=== PATIENT | male | born 1940 | race Hispanic/Latino ===

== ENCOUNTER → 2019-10-26 | Outpatient (CLI) | payer OTHER ==
[~2019-10-26] MED LIST: GADODIAMIDE 10 MMOL/20 ML VIAL IV ONE
== END | disposition home or self-care (01) ==
LOC: RAH 08:33
PROVIDERS: ATTEND Internal Medicine Gastroenterology
DX: R16.0 Hepatomegaly, not elsewhere classified (principal); D18.00 Hemangioma unspecified site; R93.3 Abnormal findings on diagnostic imaging of other parts of digestive tract
CPT/HCPCS: 74183; A9579

== ENCOUNTER 2023-09-25 18:09 | Emergency (ER) | payer OTHER ==
[~2023-09-25] VITALS: Ht 170.2 cm; Wt 74.8 kg
[2023-09-25 20:46] LABS: BASOPHILS # (AUTO) 0.05 K/uL (0.00-0.20); BASOPHILS % (AUTO) 0.7 % (0.0-5.0); EOSINOPHILS # (AUTO) 0.41 K/uL (0.00-0.70); EOSINOPHILS % (AUTO) 5.5 % (0.0-8.0); IMMATURE GRANULOCYTE ABSOLUTE 0.06 K/uL (0-1); LYMPHOCYTES # (AUTO) 1.8 K/uL (1.0-4.8); LYMPHOCYTES % (AUTO) 24.4 % (21.0-51.0); MEAN CORPUSCULAR HEMOGLOBIN 30.4 pg (27.0-33.0); MEAN CORPUSCULAR HGB CONC 33.1 g/dL (32.0-36.0); MEAN CORPUSCULAR VOLUME 92.1 fL (79-99); MONOCYTES # (AUTO) 0.6 K/uL (0.1-1.0); MONOCYTES % (AUTO) 7.4 % (3.0-13.0); NEUTROPHILS # (AUTO) 4.6 K/uL (1.8-7.7); NEUTROPHILS % (AUTO) 61.2 % (40.0-77.0); PLATELET COUNT (AUTO) 235 K/uL (130-400); RED BLOOD CELL COUNT(AUTO) 3.91 MIL/uL (4.50-6.20); RED CELL DISTRIBUTION WIDTH 14.6 % (11.0-15.5); WHITE BLOOD COUNT (AUTO) 7.5 K/uL (4.8-10.8)
[2023-09-25 20:57] LABS: CREATININE 1.1 mg/dL (0.5-1.3); POTASSIUM 4.8 mmol/L (3.5-5.1)
[2023-09-25 21:01] LABS: ALBUMIN 3.4 g/dL (3.5-5.0); BILIRUBIN,TOTAL 0.5 mg/dL (0.2-1.0); TOTAL PROTEIN, SERUM 6.6 g/dL (6.0-8.3)
[2023-09-25] MEDS: 0.9%NACL 1000ML 1,000 ML IV ONE (21:39)
[2023-09-25 21:40] LABS: APPEARANCE,URINE CLEAR (CLEAR); BILIRUBIN,URINE NEGATIVE (NEGATIVE); COLOR,URINE LIGHT-YELLOW (YELLOW); GLUCOSE, URINE (UA) NEGATIVE (NEGATIVE); KETONES,URINE NEGATIVE (NEGATIVE); LEUKOCYTE ESTERASE ,URINE NEGATIVE Leu/uL (NEGATIVE); NITRATE,URINE NEGATIVE (NEGATIVE); OCCULT BLOOD,URINE NEGATIVE (NEGATIVE); PROTEIN,URINE NEGATIVE (NEGATIVE); UROBILINOGEN,URINE 3 mg/dL (0.2-1.0)
[2023-09-25 21:42] LABS: ADD UA MICROSCOPIC YES
[2023-09-25 21:43] LABS: BACTERIA,URINE RARE /HPF (None Seen); MUCUS,URINE RARE LPF (None Seen)
[2023-09-25 23:03] VITALS: BP 148/74; PULSE 88; RESP 18; O2SAT 98
== END 2023-09-25 23:05 ==
LOC: EDH 18:09
DX: E86.0 Dehydration (principal); D64.9 Anemia, unspecified; E78.00 Pure hypercholesterolemia, unspecified; I10 Essential (primary) hypertension; M19.90 Unspecified osteoarthritis, unspecified site; F03.90 Unspecified dementia, unspecified severity, without behavioral disturbance, psychotic disturbance, mood disturbance, and anxiety; Z20.822 Contact with and (suspected) exposure to COVID-19
CPT/HCPCS: 99285; 96360; 71045; 87426; 84484; 80053; 85025; 87040 ×2; 83605; 81001; 36415; 93005; J7030

== ENCOUNTER 2025-02-16 22:16 | Inpatient (IN) | payer OTHER ==
[~2025-02-16] VITALS: Ht 162.6 cm; Wt 70.9 kg
--- NOTE | 2025-02-16 22:38 | ERN ---
General Chief Complaint: Cough Stated Complaint: COUGH Time Seen by MD: 22:17 History of Present Illness Initial Comments 85-year-old male with a extensive past medical history including severe dementia brought in by EMS from custodial here for evaluation of cough. care home was concerned about patient's overall status and called EMS for evaluation. Upon arrival by EMS patient was noted to be hypotensive thus they started 1 L lactated Ringer's. His blood pressure remains soft. Patient unable to communicate with examiner at baseline Allergies: Coded Allergies: No Known Drug Allergies (Unverified Allergy, Unknown, 09/25/23) Past Medical History Past Medical History: Arthritis, Dementia, High Cholesterol, Hypertension Past Surgical History: Unknown Respiratory: (+) cough Review of Systems: was completed, & the rest were negative. Physical Exam General Appearance: (+) no apparent distress Orientation: (+) alert Head/Face Trauma: No Eye: bilateral eye normal inspection, bilateral eye PERRL, bilateral eye EOMI Ear, Nose, Throat Comment Dry mucous membranes. Oropharynx clear Neck: (+) normal inspection, (+) supple Respiratory: (+) chest non-tender, (+) lungs clear, (+) well ventilated Heart: (+) tachycardia (Grossly us what is up from 76 I will figure out the patient was then tachycardic) Gastrointestinal: (+) soft, (+) non-tender (Scale) Results Laboratory and Microbiology Lab and Micro Result Laboratory Tests Test 02/16/25 22:40 02/16/25 23:08 02/16/25 23:11 02/16/25 23:39 White Blood Count 15.0 K/uL (4.8-10.8) H Red Blood Count 3.86 MIL/uL (4.50-6.20) L Hemoglobin 11.3 g/dL (14.0-18.0) L Hematocrit 34.7 % (42-54) L Mean Corpuscular Volume 89.9 fL (79-99) Mean Corpuscular Hemoglobin 29.3 pg (27.0-33.0) Mean Corpuscular Hemoglobin Concent 32.6 g/dL (32.0-36.0) Red Cell Distribution Width 14.7 % (11.0-15.5) Platelet Count 251 K/uL (130-400) Mean Platelet Volume 10.5 fL (7.5-10.5) Immature Granulocyte % (Auto) 0.7 % (0-1) Neutrophils (%) (Auto) 88.8 % (40.0-77.0) H Lymphocytes (%) (Auto) 5.5 % (21.0-51.0) L Monocytes (%) (Auto) 4.7 % (3.0-13.0) Eosinophils (%) (Auto) 0.1 % (0.0-8.0) Basophils (%) (Auto) 0.2 % (0.0-5.0) Neutrophils # (Auto) 13.3 K/uL (1.8-7.7) H Lymphocytes # (Auto) 0.8 K/uL (1.0-4.8) L Monocytes # (Auto) 0.7 K/uL (0.1-1.0) Eosinophils # (Auto) 0.01 K/uL (0.00-0.70) Basophils # (Auto) 0.03 K/uL (0.00-0.20) Absolute Immature Granulocyte (auto 0.11 K/uL (0-1) Nucleated Red Blood Cells 0.0 % (0.0-0.19) White Cell Morphology Comment CONSISTENT W/DIFF Sodium Level 141 mmol/L (136-145) Potassium Level 4.0 mmol/L (3.5-5.1) Chloride Level 104 mmol/L (101-111) Carbon Dioxide Level 29 mmol/L (21-32) Blood Urea Nitrogen 17 mg/dL (7-18) Creatinine 1.5 mg/dL (0.5-1.3) H Glomerular Filtration Rate Calc 45 mL/min (>90) Random Glucose 125 mg/dL (70-105) H Lactic Acid Level 2.4 mmol/L (0.8-2.5) Total Calcium 8.5 mg/dL (8.5-10.1) Total Bilirubin 0.7 mg/dL (0.2-1.0) Direct Bilirubin 0.2 mg/dL (0.0-0.3) Aspartate Amino Transf (AST/SGOT) 16 U/L (10-37) Alanine Aminotransferase (ALT/SGPT) 11 U/L (12-78) L Alkaline Phosphatase 108 U/L (50-136) Total Protein 6.0 g/dL (6.0-8.3) Albumin 2.6 g/dL (3.5-5.0) L Procalcitonin 0.12 ng/mL (0.05-0.5) Influenza Type A Antigen Negative For Type A Influenza Type B Antigen Negative For Type B SARS-CoV-2 Antigen (Rapid) PRESUMPTIVE NEGATIVE Blood Gas Specimen Type Arterial Arterial Blood pH 7.433 (7.350-7.450) Arterial Blood Partial Pressure CO2 38 mmHg (35-48) Arterial Blood Partial Pressure O2 93.0 mmHg (83.0-108.0) Arterial Blood HCO3 25.0 mmol/L (21.0-28.0) Arterial Blood Oxygen Saturation 96.9 % (94.0-98.0) Arterial Blood Base Excess 0.8 mmol/L (-2.0-3.0) Hemoglobin (Blood Gas) 11.9 g/dL (13.5-17.5) L Sodium (Blood Gas) 140 MMOL/L (136-145) Bedside Potassium (Blood Gas) 4.0 MMOL/L (3.4-4.5) Bedside Chloride (Blood Gas) 106 MMOL/L (98-107) Bedside Glucose (Blood Gas) 118 MG/DL (65-95) H Bedside Ionized Calcium (Blood Gas) 1.17 MMOL/L (1.15-1.33) Bedside Lactic Acid (Blood Gas) 1.78 MMOL/L (0.36-0.75) H Blood Gas Temperature 37.0 CELSIUS (35.5-37.0) Blood Gas Flow-by 2.00 L/min (0.00-15.00) Blood Gas Vent Mode 2 LNC (ROOM AIR) FiO2 28.0 % Blood Gas Specimen Comment RT RAD Urine Color YELLOW (YELLOW) Urine Appearance TURBID (CLEAR) Urine pH 5.5 (5.0-8.0) Urine Specific Holly 1.019 (1.001-1.031) Urine Protein 100 mg/dL (NEGATIVE) H Urine Glucose (UA) 50 mg/dL (NEGATIVE) H Urine Ketones NEGATIVE mg/dL (NEGATIVE) Urine Occult Blood LARGE (NEGATIVE) H Urine Nitrate NEGATIVE (NEGATIVE) Urine Bilirubin NEGATIVE mg/dL (NEGATIVE) Urine Urobilinogen 3 mg/dL (0.2-1.0) H Urine Leukocyte Esterase NEGATIVE [place]/uL Urine RBC TNTC /HPF (0-1) H Urine WBC 11-25 /HPF (0-1) H Urine Bacteria FEW /HPF (None Seen) Urine Hyaline Casts 11-25 /LPF (0-1 /LPF) H Urine Granular Casts (Auto) 6-10 /LPF (None Seen) H Test 02/17/25 00:44 Troponin I High Sensitivity 14 ng/L (4-75) B-Type Natriuretic Peptide 59 pg/mL (0-100) MDM 85-year-old male here for evaluation of cough. Patient was noted to be hy potensive when he presented to the emergency room. He was given 2 L of fluids which he responded to well. [place] [address] white blood cell count, lactic acidosis. However no source of infection has been fully identified. His urine is clean. Chest x-ray shows pulmonary effusions. However based of the symptomatology, I believe his source of infection is either viral and/or from the pneumonia. Thus he was started on ceftriaxone and azithromycin x1. He will be admitted to the hospitalist/benchmark team for further management and evaluation. ED Course Orders Procedure Category Date Status Time Chest 1vw RAD 02/16/25 Resulted 22:17 Influenza Type A & B, LAB 02/16/25 Complete Rapid 22:17 Covid19 (Sars Antigen LAB 02/16/25 Complete Rapid) 22:17 Lactic Acid LAB 02/16/25 Complete 22:21 Blood Cult ONEIL 02/16/25 In Process 22:21 Procalcitonin LAB 02/16/25 Complete 22:21 12 Lead Ekg Tracing- EKG 02/16/25 Logged Technical 22:21 Bedside Troponin-I LAB.ER 02/16/25 In Process (Poc) 22:21 Urinalysis Profile LAB 02/16/25 Complete Catherized 22:21 Cbc With Differential LAB 02/16/25 Complete 22:41 Basic Metabolic Panel LAB 02/16/25 Complete 22:41 Hepatic Function Panel LAB 02/16/25 Complete 22:41 Arterial Blood Gas RT 02/16/25 Transmitted 22:53 Arterial Blood Gas LAB 02/16/25 Complete Arterial + 23:11 Culture Urine ONEIL 02/17/25 In Process 00:23 B-Type Natriuretic LAB 02/17/25 Complete Peptide 00:24 Troponin I High LAB 02/17/25 Complete Sensitivity 00:24 Ceftriaxone 1g Vial PHA 02/17/25 In Process (Rocephine 1g Inj) 01:30 Azithromycin 500mg+Ns PHA 02/17/25 In Process 250ml (Azithromyci 01:30 Ct Chest Pe Protocol CT 02/17/25 Logged Wwo Cont 01:25 Current Medications Medications (Trade) Dose Ordered Sig/Radha Route PRN Reason Start Time Stop Time Status Last Admin Dose Admin Azithromycin 250 ml @ 250 mls/hr ONCE ONCE IVPB 02/17/25 01:30 02/17/25 02:29 Ceftriaxone Sodium (ROCEphine 1G INJ) 1 gm ONCE ONCE IVPB 02/17/25 01:30 02/17/25 01:31 Vital Signs Date Time Temp Pulse Resp B/P (MAP) Pulse Ox O2 Delivery O2 Flow Rate FiO2 02/16/25 23:17 98.8 108 25 115/66 100 Nasal Cannula* 3 32 02/16/25 22:20 98.2 60 20 85/40 87 Room Air 0 DX & DISP Disposition: Inpatient Departure Impression: Primary Impression: Sepsis due to pneumonia Additional Impressions: CKD (chronic kidney disease), Dementia Condition: Stable Referrals: SELF,REFERRAL (PCP) KAREN PETTIT MD Feb 16, 2025 22:38
[2025-02-16 23:08] LABS: IMMATURE GRANULOCYTE ABSOLUTE 0.11 K/uL (0-1); NUCLEATED RED BLOOD CELLS 0.0 % (0.0-0.19); PLATELET COUNT (AUTO) 251 K/uL (130-400); RED BLOOD CELL COUNT(AUTO) 3.86 MIL/uL (4.50-6.20); RED CELL DISTRIBUTION WIDTH 14.7 % (11.0-15.5); WHITE BLOOD COUNT (AUTO) 15.0 K/uL (4.8-10.8)
--- NOTE | 2025-02-16 23:09 | HMCIMG ---
EXAM: CR Chest, 1 view CLINICAL HISTORY: Cough. Shortness of breath. COMPARISON: None provided. FINDINGS: Mildly blunted left CP angle, concerning small pleural effusion or pleural thickening. The remaining lung kwan are clear. No pneumothorax. The cardiomediastinal silhouette is within normal limits. No acute osseous abnormality. IMPRESSION: Mildly blunted left CP angle, concerning small pleural effusion or pleural thickening. /[place]
[2025-02-16 23:15] LABS: ABG BASE EXCESS 0.8 mmol/L (-2.0-3.0); ABG HCO3 25.0 mmol/L (21.0-28.0); ABG OXYGEN SATURATION 96.9 % (94.0-98.0); ABG PCO2 38 mmHg (35-48); ABG PH 7.433 (7.350-7.450); CARBON MONOXIDE 0.3 % (0.5-1.5); DEVICE COMMENT RT RAD; PO2, ARTERIAL BG 93.0 mmHg (83.0-108.0); TEMPERATURE, CELSIUS BG 37.0 CELSIUS (35.5-37.0); VENT MODE, BG 2 LNC (ROOM AIR)
[2025-02-16 23:17] LABS: CREATININE 1.5 mg/dL (0.5-1.3); GLOMERULAR FILTR. RATE CALC 45.0 mL/min (>90); GLUCOSE,RANDOM 125.0 mg/dL (70-105); SODIUM SERUM 141.0 mmol/L (136-145); UREA NITROGEN, BLOOD 17.0 mg/dL (7-18)
[2025-02-16 23:22] LABS: ASPARTATE AMINOTRANSFERASE 16.0 U/L (10-37); TOTAL PROTEIN, SERUM 6.0 g/dL (6.0-8.3)
[2025-02-16 23:36] LABS: COVID19 (SARS ANTIGEN RAPID) PRESUMPTIVE NEGATIVE (NEGATIVE); INFLUENZA TYPE A Negative For Type A (NEGATIVE); INFLUENZA TYPE B Negative For Type B (NEGATIVE)
[2025-02-17] VITALS (13 sets, daily range): BP systolic 97–140; BP diastolic 56–69; PULSE 63–102; RESP 16–20; TEMP 96.2–98.2; O2SAT 98–100
[2025-02-17 00:15] LABS: WBC MORPHOLOGY CONSISTENT W/DIFF
[2025-02-17 00:17] LABS: ADD UA MICROSCOPIC YES; APPEARANCE,URINE TURBID (CLEAR); GLUCOSE, URINE (UA) 50 mg/dL (NEGATIVE); LEUKOCYTE ESTERASE ,URINE NEGATIVE Leu/uL (NEGATIVE); NITRATE,URINE NEGATIVE (NEGATIVE); OCCULT BLOOD,URINE LARGE (NEGATIVE)
[2025-02-17] MEDS: AZITHROMYCIN 500MG+NS 250ML 250 ML IVPB ONE (01:47)
[2025-02-17] MEDS ORDERED: NITROGLYCERIN 0.4 MG SL TAB SL PRN (02:30)
[2025-02-17] MEDS ORDERED: LACTULOSE 20 GM/30 ML UDCUP PO PRN (02:30)
[2025-02-17] MEDS ORDERED: MAG/ALUM/SIMETH 30 ML UDCUP PO PRN (02:30)
[2025-02-17] MEDS: LACTATED RINGERS 1000ML 1,000 ML IV SCH (02:41)
[2025-02-17 02:43] LABS: INR 1.14 (0.85-1.15)
--- NOTE | 2025-02-17 02:46 | NUR ---
SANNA (ASSISTED LIVING AUTOMATIC SPLICING MACHINE OPERATOR) [phone]
--- NOTE | 2025-02-17 03:27 | HMCIMG ---
EXAM: CTA examination of the chest CLINICAL HISTORY: Acute hypoxic respiratory failure. TECHNIQUE: Thin collimated axial CTA images of the chest were obtained, with sagittal and coronal reformatted images also submitted. A CT scan is done according to ALARA (As Low as Reasonably Achievable). CONTRAST USED: Contrast details are not available. COMPARISON: Prior chest radiograph dated February 16, 2025. FINDINGS: Minimal right-sided pleural effusion and mild left posterior pleural thickening with subsegmental atelectasis in the bilateral lower lobes. Tiny 2 mm calcified granuloma in the posterior basal segment of the right lower lobe. Mild centrilobular emphysematous changes in the lung parenchyma. No concerning lung nodules No pericardial effusion. The heart size is within normal limits. Scattered coronary artery calcifications. Atherosclerotic calcification of the thoracic aorta without aneurysmal dilatation. No thoracic aortic aneurysm or dissection. No filling defect or pulmonary thromboembolism. No axillary, supraclavicular, or mediastinal lymphadenopathy. No focal thyroid abnormality. A lobulated 4.8 x 4.2 cm hypodense lesion in segment 3 of the liver. A 2.6 x 2.2 cm cyst in segment 2 of the liver. Post cholecystectomy status. A few left renal cortical cysts are identified, partially visualized largest measuring 4.6 cm. Nonobstructive punctate 2 mm calculus in the right kidney interpolar calyx. Mild hiatus hernia. The remainder of the visualized upper abdomen is unremarkable. No acute or suspicious osseous abnormality. Degenerative changes in the mid and lower thoracic spine. IMPRESSION: Normal contrast opacification of the pulmonary vasculature. No obvious evidence of pulmonary embolism. Normal cardiac size, scattered coronary artery calcifications. Nonaneurysmal atherosclerotic vascular disease of the thoracic aorta. No evidence of dissection of the thoracic aorta. Minimal right-sided pleural effusion and mild left posterior pleural thickening with subsegmental atelectasis in the bilateral lower lobes. Tiny 2 mm calcified granuloma in the posterior basal segment of the right lower lobe. Mild centrilobular emphysematous changes in the lung parenchyma. Mild hiatus hernia. A cyst in segment 2 of the liver, 2.6 x 2.2 cm, and a hypodense 4.8 x 4.2 cm lesion in segment 3 of the liver. Suggest further evaluation with triphasic CT abdomen. Bilateral renal cortical cysts, the largest measuring 4.2 cm in the left kidney's interpolar region. Nonobstructive punctate 2 mm calculus in the right kidney interpolar region. /[place]
--- NOTE | 2025-02-17 06:52 | EKG ---
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
[2025-02-17] MEDS ORDERED: IOHEXOL-350 75 ML VIAL IV ONE (07:15)
[2025-02-17] MEDS: FAMOTIDINE 20MG VIAL IV SCH (11:24)
[2025-02-17] MEDS: Solu-medROL 40MG VIAL IVP SCH (11:24)
[2025-02-17 11:29] LABS: IMMATURE GRANULOCYTE ABSOLUTE 0.06 K/uL (0-1); NUCLEATED RED BLOOD CELLS 0.0 % (0.0-0.19); PLATELET COUNT (AUTO) 231 K/uL (130-400); RED BLOOD CELL COUNT(AUTO) 3.53 MIL/uL (4.50-6.20); RED CELL DISTRIBUTION WIDTH 15.0 % (11.0-15.5); WHITE BLOOD COUNT (AUTO) 13.4 K/uL (4.8-10.8)
--- NOTE | 2025-02-17 12:09 | HP ---
[facility] HISTORY & PHYSICAL Date Patient Seen: Feb 17, 2025 Time of Visit: 12:08 Supervising Physician: DR PIEDAD TAI Primary Care Physician: [ ] Outpatient Specialists: [ ] Inpatient Consults: [ ] PROBLEM LIST: SEPSIS ACUTE COMPLICATED CYSTITIS DALLIN UNKNOWN IF ACUTE ON CHRONIC HISTORY OF DEMENTIA, CAD, HYPERTENSION HPI: PATIENT IS AN 85-YEAR-OLD MALE I AM TOLD THAT HAS EXTENSIVE PAST MEDICAL HISTORY INCLUDES SEVERE DEMENTIA, HYPERTENSION, CAD WHO PRESENTED FROM A [facility] FOR HYPOTENSION. CODE SEPSIS WAS INITIATED, PATIENT RECEIVED FLUIDS AND WAS STARTED ON ANTIBIOTICS. PATIENT WAS FOUND TO HAVE AN ACUTE COMPLICATED CYSTITIS. CONCERN FOR POSSIBLE ASPIRATION PNEUMONIA. PATIENT ADMITTED TO THE FLOOR, ON SUPPLEMENTAL O2, NEBULIZER TREATMENTS AND STEROIDS. WE ARE PENDING ADDITIONAL DETAILS AND REVIEW OF HIS HOME MEDICATIONS AND ADDITIONAL HISTORY. UNKNOWN CODE STATUS PAST MEDICAL HX: DEMENTIA HYPERTENSION CAD PAST SURGICAL HX: noncontributory SOCIAL HISTORY: No tobacco, ETOH, or illicit drug use Coded Allergies: No Known Drug Allergies (Unverified Allergy, Unknown, 09/25/23) REVIEW OF SYSTEMS: 12 point ROS reviewed with patient. Pertinent positives mentioned above. Otherwise negative. PHYSICAL EXAM: GENERAL: alert, weak, awake oriented x 3 HEENT: EOMI, Sclera non icteric, moist mucosa NECK: Supple, no JVD, trachea midline LUNGS: Clear breath sounds bilaterally. No wheezes HEART: Regular rate and rhythm. Normal S1 and S2, without murmurs ABD: Abdomen soft, nontender. Bowel sounds present EXT: No clubbing cyanosis or edema NEURO: Alert and oriented to person, follows commands Vital Signs (last 8hr) Date Time Temp Pulse Resp B/P (MAP) Pulse Ox O2 Delivery O2 Flow Rate FiO2 02/17/25 11:18 91 20 N/Cannula Low lpm 2.0 28 02/17/25 11:18 91 18 02/17/25 07:50 97.3 91 18 111/66 100 Nasal Cannula 2.0 02/17/25 07:02 84 18 02/17/25 07:01 84 20 N/Cannula Low lpm 3.0 32 02/17/25 06:55 98.2 87 18 107/67 97 Nasal Cannula 2.0 02/17/25 05:20 63 18 119/58 100 Nasal Cannula* 3 32 LABS: Hematology Labs: Test 02/17/25 02:21 02/16/25 22:40 Range/Units White Blood Count 13.4 H 4.8-10.8 K/uL Red Blood Count 3.53 L 4.50-6.20 MIL/uL Hemoglobin 10.3 L 14.0-18.0 g/dL Hematocrit 32.9 L 42-54 % Mean Corpuscular Volume 93.2 79-99 fL Mean Corpuscular Hemoglobin 29.2 27.0-33.0 pg Mean Corpuscular Hemoglobin Concent 31.3 L 32.0-36.0 g/dL Red Cell Distribution Width 15.0 11.0-15.5 % Platelet Count 231 130-400 K/uL Mean Platelet Volume 11.1 H 7.5-10.5 fL Immature Granulocyte % (Auto) 0.4 0-1 % Neutrophils (%) (Auto) 85.9 H 40.0-77.0 % Lymphocytes (%) (Auto) 9.0 L 21.0-51.0 % Monocytes (%) (Auto) 4.4 3.0-13.0 % Eosinophils (%) (Auto) 0.2 0.0-8.0 % Basophils (%) (Auto) 0.1 0.0-5.0 % Neutrophils # (Auto) 11.5 H 1.8-7.7 K/uL Lymphocytes # (Auto) 1.2 1.0-4.8 K/uL Monocytes # (Auto) 0.6 0.1-1.0 K/uL Eosinophils # (Auto) 0.03 0.00-0.70 K/uL Basophils # (Auto) 0.02 0.00-0.20 K/uL Absolute Immature Granulocyte (auto 0.06 0-1 K/uL Nucleated Red Blood Cells 0.0 0.0-0.19 % White Cell Morphology Comment CONSISTENT W/DIFF Chemistry Labs: Test 02/17/25 02:22 02/17/25 00:44 02/16/25 22:40 Range/Units Lactic Acid Level 1.5 0.8-2.5 mmol/L Troponin I High Sensitivity 14 4-75 ng/L B-Type Natriuretic Peptide 59 0-100 pg/mL Sodium Level 141 136-145 mmol/L Potassium Level 4.0 3.5-5.1 mmol/L Chloride Level 104 101-111 mmol/L Carbon Dioxide Level 29 21-32 mmol/L Blood Urea Nitrogen 17 7-18 mg/dL Creatinine 1.5 H 0.5-1.3 mg/dL Glomerular Filtration Rate Calc 45 >90 mL/min Random Glucose 125 H 70-105 mg/dL Total Calcium 8.5 8.5-10.1 mg/dL Total Bilirubin 0.7 0.2-1.0 mg/dL Direct Bilirubin 0.2 0.0-0.3 mg/dL Aspartate Amino Transf (AST/SGOT) 16 10-37 U/L Alanine Aminotransferase (ALT/SGPT) 11 L 12-78 U/L Alkaline Phosphatase 108 50-136 U/L Total Protein 6.0 6.0-8.3 g/dL Albumin 2.6 L 3.5-5.0 g/dL Procalcitonin 0.12 0.05-0.5 ng/mL Coagulation Labs: Test 02/17/25 02:22 Range/Units Prothrombin Time 11.9 H 9.6-11.6 SEC Prothromb Time International Ratio 1.14 0.85-1.15 Activated Partial Thromboplast Time 27.7 26.3-35.5 SEC DIAGNOSTICS / RADIOLOGY RESULTS: [ ] PLAN PENDING HOME MEDICATIONS, FOR RECONCILIATION CONTINUE ANTIBIOTICS, FLUIDS STEROIDS NEB TREATMENTS RT TELEMETRY NEURO: Minimize central acting medications as possible. Maintain fall precautions, adequate lighting during the day PULMONARY: Supplemental 02 as needed. Maintain aspiration precautions at all times CARDIOVASCULAR: Follow hemodynamics. Vital signs per facility protocol GI & NUTRITION: Continue with nutritional support. Continue stool softeners and laxatives as needed. KIDNEYS & ELECTROLYTES: Strict monitoring of intake, output and overall fluid balance. Avoid nephrotoxic medications to the extent possible. Medications to be dosed according to renal function. Monitor electrolytes and replace as needed ENDOCRINE: Maintain blood glucose between 100-180 at all times. Hypoglycemia protocol in place INFECTIOUS DISEASE: Trend temperature, WBC and procalcitonin level Follow cultures, deescalate antibiotics as soon as possible. Panculture if new onset fever ONCOLOGY/HEMATOLOGY/COAGULATION: Monitor for s/s of bleeding Monitor hemoglobin, coagulation studies as needed SKIN: Pressure ulcer prevention per facility protocol Specialty mattress ORTHO/REHAB: Continue PT/OT Prophylaxis: Continue GI and DVT prophylaxis Code Status: Full Resuscitation Disposition: TBD Other: Total patient care time exceeds 35 minutes excluding all procedures. DANETTE EDMOND PAC Feb 17, 2025 12:09
--- NOTE | 2025-02-17 13:18 | NUR ---
DCP: [facility] [address] Per Tiffany Amrik, [phone], pt and his reside in one of her private care homes. Pt has not been dx, but it is suspected by that pt has Parkinson's. Per Tiffany, pt has good days and bad days. Some days he requires no assistance, other he needs assist with ADLS, and ambulation. Pt pockets food, has difficulty walking, can be aggressive at time, but easily re directed. Pt has a walker, but does not like to use it. No HH services. PCP is Francisca Jarvis and uses [facility] for rx. Per Tiffany and pt's daughter Christy Jaime [phone], pt will return to private [facility]-way [facility]. Tiffany can transport pt home.
--- NOTE | 2025-02-17 16:40 | NUR ---
BEDSIDE SWALLOW EVAL COMPLETED. No s/s of aspiration. Pt with mild oral dysphagia. RECOMMEND: minced and moist solids, thin liquids and pills crushed with pureed as tolerated. COMPENSATORY STRATEGIES: 1. sit upright during oral intake 2. small bites/sips 3. slow oral intake 4. oral care of meals 5. supervision and assistance during oral intake TYING IN MACHINE OPERATOR reviewed results and recommendations with patient, family and nurse James. TYING IN MACHINE OPERATOR educated patient on risks and consequences of aspiration. Speech therapy recommended at this time to address mild oral dysphagia. All questions answered. RECOMMENDATIONS: Dysphagia Therapy 1-3X week to increase oral motor strength: LTG#1: Pt will tolerate least restrictive diet to meet nutrition/hydration with no s/s of aspiration. LTG#2: Skilled education Pt/family/staff STG#1: Pt will participate in oral motor exercises with 90% acc/with Min A. STG#2: Pt will participate in tongue base retraction exercises with 90% acc/with Min A. STG#3: Pt will tolerate modified diet of minced and moist solids with no overt s/s of aspiration. STG#4: Skilled education Pt/family/staff. Addendum: 02/17/[address] HALEY FERNANDEZ Amended: Links added.
--- NOTE | 2025-02-17 18:21 | HMCIMG ---
EXAM: XR Chest, 1 AP View. CLINICAL HISTORY: PP. COMPARISON: CT chest dated 02/17/2025. FINDINGS: LUNGS: Subtle haziness seen in lower lobes. No consolidation. PLEURAL SPACES: Blunting of bilateral costophrenic angles. No pneumothorax. HEART: The heart size is normal. BONES: No acute osseous abnormality. IMPRESSION: 1. Blunting of the costophrenic angles, suggesting pleural thickening/pleural effusion with subtle bibasilar atelectasis. 2. As compared to prior CT chest dated 02/17/2025, no interval change is seen. /[place]
[2025-02-18] VITALS (12 sets, daily range): BP systolic 113–162; BP diastolic 59–94; PULSE 61–99; RESP 16–22; TEMP 97.9–98.8; O2SAT 93–98
[2025-02-18] MEDS: AZITHROMYCIN 500MG+NS 250ML 250 ML IVPB SCH (01:54)
[2025-02-18 03:37] LABS: IMMATURE GRANULOCYTE ABSOLUTE 0.09 K/uL (0-1); NUCLEATED RED BLOOD CELLS 0.0 % (0.0-0.19); PLATELET COUNT (AUTO) 211 K/uL (130-400); RED BLOOD CELL COUNT(AUTO) 3.27 MIL/uL (4.50-6.20); RED CELL DISTRIBUTION WIDTH 14.8 % (11.0-15.5); WHITE BLOOD COUNT (AUTO) 12.0 K/uL (4.8-10.8)
[2025-02-18 03:56] LABS: ASPARTATE AMINOTRANSFERASE 14.0 U/L (10-37); CREATININE 1.2 mg/dL (0.5-1.3); GLOMERULAR FILTR. RATE CALC 59.0 mL/min (>90); GLUCOSE,RANDOM 120.0 mg/dL (70-105); SODIUM SERUM 143.0 mmol/L (136-145); TOTAL PROTEIN, SERUM 5.2 g/dL (6.0-8.3); UREA NITROGEN, BLOOD 18.0 mg/dL (7-18)
--- NOTE | 2025-02-18 10:58 | PN ---
[facility] PROGRESS NOTE Date Patient Seen: Feb 18, 2025 Time of Visit: 10:55 Supervising Physician: Dr Terry Demarco Primary Care Physician: [ ] Outpatient Specialists: [ ] Inpatient Consults: [ ] PROBLEM LIST: SEPSIS ACUTE COMPLICATED CYSTITIS DALLIN UNKNOWN IF ACUTE ON CHRONIC HISTORY OF DEMENTIA, CAD, HYPERTENSION INTERVAL HISTORY: Patient is awake, has dementia at baseline Nursing reports no acute events overnight, patient afebrile Currently on nasal cannula good saturations, vital signs are stable Patient's chest x-ray clear Cultures negative Continues on azithromycin and ceftriaxone Plan: We will continue with the antibiotics, following cultures Supplemental O2 Patient's DALLIN is improving, we will follow I&Os Continue with telemetry Patient downgraded to med surge Anticipate discharge in the next 24 REVIEW OF SYSTEMS: 12 point ROS reviewed with patient. Pertinent positives mentioned above. Otherwise negative. PHYSICAL EXAM: GENERAL: alert, weak, awake oriented x 3 HEENT: EOMI, Sclera non icteric, moist mucosa NECK: Supple, no JVD, trachea midline LUNGS: Clear breath sounds bilaterally. No wheezes HEART: Regular rate and rhythm. Normal S1 and S2, without murmurs ABD: Abdomen soft, nontender. Bowel sounds present EXT: No clubbing cyanosis or edema NEURO: Alert and oriented to person, follows commands Vital Signs (last 8hr) Date Time Temp Pulse Resp B/P (MAP) Pulse Ox O2 Delivery O2 Flow Rate FiO2 02/18/25 08:00 94 Nasal Cannula* 2 28 02/18/25 07:57 98.2 82 18 116/59 94 Nasal Cannula 2.0 02/18/25 06:57 67 18 02/18/25 06:56 85 20 N/Cannula Low lpm 21 02/18/25 03:20 98.1 61 22 113/62 98 Nasal Cannula 2.0 LABS: Hematology Labs: Test 02/18/25 03:22 02/16/25 22:40 Range/Units White Blood Count 12.0 H 4.8-10.8 K/uL Red Blood Count 3.27 L 4.50-6.20 MIL/uL Hemoglobin 9.6 L 14.0-18.0 g/dL Hematocrit 29.0 L 42-54 % Mean Corpuscular Volume 88.7 79-99 fL Mean Corpuscular Hemoglobin 29.4 27.0-33.0 pg Mean Corpuscular Hemoglobin Concent 33.1 32.0-36.0 g/dL Red Cell Distribution Width 14.8 11.0-15.5 % Platelet Count 211 130-400 K/uL Mean Platelet Volume 10.3 7.5-10.5 fL Immature Granulocyte % (Auto) 0.7 0-1 % Neutrophils (%) (Auto) 91.2 H 40.0-77.0 % Lymphocytes (%) (Auto) 5.8 L 21.0-51.0 % Monocytes (%) (Auto) 2.2 L 3.0-13.0 % Eosinophils (%) (Auto) 0.0 0.0-8.0 % Basophils (%) (Auto) 0.1 0.0-5.0 % Neutrophils # (Auto) 11.0 H 1.8-7.7 K/uL Lymphocytes # (Auto) 0.7 L 1.0-4.8 K/uL Monocytes # (Auto) 0.3 0.1-1.0 K/uL Eosinophils # (Auto) 0.00 0.00-0.70 K/uL Basophils # (Auto) 0.01 0.00-0.20 K/uL Absolute Immature Granulocyte (auto 0.09 0-1 K/uL Nucleated Red Blood Cells 0.0 0.0-0.19 % White Cell Morphology Comment CONSISTENT W/DIFF Chemistry Labs: Test 02/18/25 03:22 02/17/25 00:44 02/16/25 22:40 Range/Units Sodium Level 143 136-145 mmol/L Potassium Level 4.0 3.5-5.1 mmol/L Chloride Level 109 101-111 mmol/L Carbon Dioxide Level 27 21-32 mmol/L Blood Urea Nitrogen 18 7-18 mg/dL Creatinine 1.2 0.5-1.3 mg/dL Glomerular Filtration Rate Calc 59 >90 mL/min Random Glucose 120 H 70-105 mg/dL Lactic Acid Level 1.3 0.8-2.5 mmol/L Total Calcium 8.2 L 8.5-10.1 mg/dL Total Bilirubin 0.4 0.2-1.0 mg/dL Aspartate Amino Transf (AST/SGOT) 14 10-37 U/L Alanine Aminotransferase (ALT/SGPT) 10 L 12-78 U/L Alkaline Phosphatase 85 50-136 U/L Total Protein 5.2 L 6.0-8.3 g/dL Albumin 2.2 L 3.5-5.0 g/dL Troponin I High Sensitivity 14 4-75 ng/L B-Type Natriuretic Peptide 59 0-100 pg/mL Direct Bilirubin 0.2 0.0-0.3 mg/dL Procalcitonin 0.12 0.05-0.5 ng/mL Coagulation Labs: Test 02/17/25 02:22 Range/Units Prothrombin Time 11.9 H 9.6-11.6 SEC Prothromb Time International Ratio 1.14 0.85-1.15 Activated Partial Thromboplast Time 27.7 26.3-35.5 SEC DIAGNOSTICS / RADIOLOGY RESULTS: [ ] PLAN NEURO: Minimize central acting medications as possible. Maintain fall precautions, adequate lighting during the day PULMONARY: Supplemental 02 as needed. Maintain aspiration precautions at all times CARDIOVASCULAR: Follow hemodynamics. Vital signs per facility protocol GI & NUTRITION: Continue with nutritional support. Continue stool softeners and laxatives as needed. KIDNEYS & ELECTROLYTES: Strict monitoring of intake, output and overall fluid balance. Avoid nephrotoxic medications to the extent possible. Medications to be dosed according to renal function. Monitor electrolytes and replace as needed ENDOCRINE: Maintain blood glucose between 100-180 at all times. Hypoglycemia protocol in place INFECTIOUS DISEASE: Trend temperature, WBC and procalcitonin level Follow cultures, deescalate antibiotics as soon as possible. Panculture if new onset fever ONCOLOGY/HEMATOLOGY/COAGULATION: Monitor for s/s of bleeding Monitor hemoglobin, coagulation studies as needed SKIN: Pressure ulcer prevention per facility protocol Specialty mattress ORTHO/REHAB: Continue PT/OT Prophylaxis: Continue GI and DVT prophylaxis Code Status: Full Resuscitation Disposition: DANETTE AUSTIN PAC Feb 18, 2025 10:58
--- NOTE | 2025-02-18 11:35 | NUR ---
REPORT RECEIVED FROM DANIEL NAVARRO. PATIENT ARRIVED TO THE UNIT NO SIGNS OF DISTRESS NOTED. PATIENT CONNECTED TO FLUIDS.
--- NOTE | 2025-02-18 11:35 | NUR ---
REPORT GIVEN TO MELANIE BRICENO AND STEP DAUGHTER KALIA CLARK WAS NOTIFIED OF ROOM CHANGE TO 421
[2025-02-18] MEDS ORDERED: MIDAZOLAM HCL 1 MG/ML 2ML VIAL ONE (13:44)
--- NOTE | 2025-02-18 14:11 | HMCIMG ---
EXAM: CR Chest, 1 View. CLINICAL HISTORY: Follow-up COMPARISON: 02/17/2025 FINDINGS: LUNGS: Interval improvement in the aeration of bilateral lower zones. PLEURAL SPACES: No pleural effusion or pneumothorax. MEDIASTINUM: Cardiac size is stable. Pulmonary vessels are within normal limits. BONES: No aggressive appearing osseous lesion seen. IMPRESSION: Interval improvement in the aeration of bilateral lower lung zones. No pleural effusion. /[place]
[2025-02-18] MEDS: guaiFENesin-DM 200/20MG 10ML PO PRN (17:58)
[2025-02-19] VITALS (11 sets, daily range): BP systolic 95–164; BP diastolic 55–91; PULSE 69–84; RESP 16–20; TEMP 98–98.6; O2SAT 95–100
--- NOTE | 2025-02-19 02:14 | NUR ---
nurse note patient alert and oriented times 3. plan of care discussed with him and his provider and his provider verbalized understanding. patient pleasantly confused. he is bed bound. he has no pain tonight. he has coughing with clear phlegm. We encourage him to cough and spit out his phlegm, but he does not know how. We suction his phlegm out. He has slept about 7 hours tonight. He is on a purewick. Ana and I turn him on his sides to prevent skin breakdown. call light within reach, bed alarm on, 2 side rails up. will continue to monitor patient.
[2025-02-19 05:50] LABS: IMMATURE GRANULOCYTE ABSOLUTE 0.15 K/uL (0-1); NUCLEATED RED BLOOD CELLS 0.0 % (0.0-0.19); PLATELET COUNT (AUTO) 223 K/uL (130-400); RED BLOOD CELL COUNT(AUTO) 3.38 MIL/uL (4.50-6.20); RED CELL DISTRIBUTION WIDTH 15.0 % (11.0-15.5); WHITE BLOOD COUNT (AUTO) 11.9 K/uL (4.8-10.8)
[2025-02-19 06:09] LABS: ASPARTATE AMINOTRANSFERASE 19.0 U/L (10-37); CREATININE 1.1 mg/dL (0.5-1.3); GLOMERULAR FILTR. RATE CALC 65.0 mL/min (>90); GLUCOSE,RANDOM 111.0 mg/dL (70-105); SODIUM SERUM 142.0 mmol/L (136-145); TOTAL PROTEIN, SERUM 5.4 g/dL (6.0-8.3); UREA NITROGEN, BLOOD 22.0 mg/dL (7-18)
[2025-02-19 09:10] LABS: ASPARTATE AMINOTRANSFERASE 17.0 U/L (10-37); CREATININE 1.1 mg/dL (0.5-1.3); GLOMERULAR FILTR. RATE CALC 65.0 mL/min (>90); GLUCOSE,RANDOM 113.0 mg/dL (70-105); SODIUM SERUM 144.0 mmol/L (136-145); TOTAL PROTEIN, SERUM 5.4 g/dL (6.0-8.3); UREA NITROGEN, BLOOD 21.0 mg/dL (7-18)
--- NOTE | 2025-02-19 09:52 | PN ---
[facility] PROGRESS NOTE Date Patient Seen: Feb 19, 2025 Time of Visit: 09:52 Supervising Physician: Dr. Rendon Primary Care Physician: Dr. Ruperto Jarvis Outpatient Specialists: [ ] Inpatient Consults: [ ] PROBLEM LIST: Sepsis on arrival Toxic metabolic encephalopathy Aspiration pneumonia Acute complicated cystitis DALLIN, unknown if acute on chronic History of dementia CAD Hypertension INTERVAL HISTORY: Patient evaluated at bedside currently receiving nebulizer treatment. Granddaughter present for the evaluation. He remains encephalopathic at this time, daughter states he is responding less than baseline. There were reported episodes of him coughing and apparently choking while trying to take his cough medication as well as sips of water. At this time patient has been placed on aspiration precautions for suspected aspiration pneumonia. He continues on azithromycin and Rocephin today, white count is 11.9 and hemoglobin is 9.8. Creatinine at 1.1 today. Patient will remain NPO at this time. We will work towards SNF facility and discussed the possible option of palliative care with the family. Plan: We will continue with the antibiotics, following cultures Supplemental O2 Pending family decision on SNF placement Patient to remain NPO Patient's DALLIN is improving, we will follow I&Os Continue with telemetry Patient downgraded to med surge REVIEW OF SYSTEMS: 12 point ROS reviewed with patient. Pertinent positives mentioned above. Otherwise negative. PHYSICAL EXAM: GENERAL: alert, weak, awake oriented x 3 HEENT: EOMI, Sclera non icteric, moist mucosa NECK: Supple, no JVD, trachea midline LUNGS: Clear breath sounds bilaterally. No wheezes HEART: Regular rate and rhythm. Normal S1 and S2, without murmurs ABD: Abdomen soft, nontender. Bowel sounds present EXT: No clubbing cyanosis or edema NEURO: Alert and oriented to person, follows commands Vital Signs (last 8hr) Date Time Temp Pulse Resp B/P (MAP) Pulse Ox O2 Delivery O2 Flow Rate FiO2 02/19/25 08:00 98.1 84 16 126/55 95 Room Air 21 02/19/25 06:49 71 20 N/Cannula Low lpm 2.0 28 02/19/25 06:44 70 20 02/19/25 03:39 98.1 79 16 95/61 96 Nasal Cannula 2.0 LABS: Hematology Labs: Test 02/19/25 05:38 Range/Units White Blood Count 11.9 H 4.8-10.8 K/uL Red Blood Count 3.38 L 4.50-6.20 MIL/uL Hemoglobin 9.8 L 14.0-18.0 g/dL Hematocrit 30.5 L 42-54 % Mean Corpuscular Volume 90.2 79-99 fL Mean Corpuscular Hemoglobin 29.0 27.0-33.0 pg Mean Corpuscular Hemoglobin Concent 32.1 32.0-36.0 g/dL Red Cell Distribution Width 15.0 11.0-15.5 % Platelet Count 223 130-400 K/uL Mean Platelet Volume 10.4 7.5-10.5 fL Immature Granulocyte % (Auto) 1.3 H 0-1 % Neutrophils (%) (Auto) 90.3 H 40.0-77.0 % Lymphocytes (%) (Auto) 4.7 L 21.0-51.0 % Monocytes (%) (Auto) 3.5 3.0-13.0 % Eosinophils (%) (Auto) 0.0 0.0-8.0 % Basophils (%) (Auto) 0.2 0.0-5.0 % Neutrophils # (Auto) 10.8 H 1.8-7.7 K/uL Lymphocytes # (Auto) 0.6 L 1.0-4.8 K/uL Monocytes # (Auto) 0.4 0.1-1.0 K/uL Eosinophils # (Auto) 0.00 0.00-0.70 K/uL Basophils # (Auto) 0.02 0.00-0.20 K/uL Absolute Immature Granulocyte (auto 0.15 0-1 K/uL Nucleated Red Blood Cells 0.0 0.0-0.19 % Chemistry Labs: Test 02/19/25 08:49 02/18/25 03:22 Range/Units Sodium Level 144 136-145 mmol/L Potassium Level 3.9 3.5-5.1 mmol/L Chloride Level 108 101-111 mmol/L Carbon Dioxide Level 28 21-32 mmol/L Blood Urea Nitrogen 21 H 7-18 mg/dL Creatinine 1.1 0.5-1.3 mg/dL Glomerular Filtration Rate Calc 65 >90 mL/min Random Glucose 113 H 70-105 mg/dL Total Calcium 8.4 L 8.5-10.1 mg/dL Total Bilirubin 0.3 # 0.2-1.0 mg/dL Aspartate Amino Transf (AST/SGOT) 17 10-37 U/L Alanine Aminotransferase (ALT/SGPT) 11 #L 12-78 U/L Alkaline Phosphatase 91 50-136 U/L Total Protein 5.4 L 6.0-8.3 g/dL Albumin 2.4 L 3.5-5.0 g/dL Lactic Acid Level 1.3 0.8-2.5 mmol/L DIAGNOSTICS / RADIOLOGY RESULTS: [ ] PLAN NEURO: Minimize central acting medications as possible. Maintain fall precautions, adequate lighting during the day PULMONARY: Supplemental 02 as needed. Maintain aspiration precautions at all times CARDIOVASCULAR: Follow hemodynamics. Vital signs per facility protocol GI & NUTRITION: Continue with nutritional support. Continue stool softeners and laxatives as needed. KIDNEYS & ELECTROLYTES: Strict monitoring of intake, output and overall fluid balance. Avoid nephrotoxic medications to the extent possible. Medications to be dosed according to renal function. Monitor electrolytes and replace as needed ENDOCRINE: Maintain blood glucose between 100-180 at all times. Hypoglycemia protocol in place INFECTIOUS DISEASE: Trend temperature, WBC and procalcitonin level Follow cultures, deescalate antibiotics as soon as possible. Panculture if new onset fever ONCOLOGY/HEMATOLOGY/COAGULATION: Monitor for s/s of bleeding Monitor hemoglobin, coagulation studies as needed SKIN: Pressure ulcer prevention per facility protocol Specialty mattress ORTHO/REHAB: Continue PT/OT Prophylaxis: Continue GI and DVT prophylaxis Code Status: Full Resuscitation Disposition: CARTER BRITTON PAC Feb 19, 2025 09:52
[2025-02-20] VITALS (12 sets, daily range): BP systolic 137–164; BP diastolic 70–93; PULSE 65–78; RESP 16–20; TEMP 97.8–98.6; O2SAT 97–100
[2025-02-20 06:23] LABS: IMMATURE GRANULOCYTE ABSOLUTE 0.33 K/uL (0-1); NUCLEATED RED BLOOD CELLS 0.3 % (0.0-0.19); PLATELET COUNT (AUTO) 205 K/uL (130-400); RED BLOOD CELL COUNT(AUTO) 3.28 MIL/uL (4.50-6.20); RED CELL DISTRIBUTION WIDTH 14.6 % (11.0-15.5); WHITE BLOOD COUNT (AUTO) 10.4 K/uL (4.8-10.8)
[2025-02-20 06:44] LABS: ASPARTATE AMINOTRANSFERASE 21.0 U/L (10-37); CREATININE 1.1 mg/dL (0.5-1.3); GLOMERULAR FILTR. RATE CALC 65.0 mL/min (>90); GLUCOSE,RANDOM 99.0 mg/dL (70-105); SODIUM SERUM 142.0 mmol/L (136-145); TOTAL PROTEIN, SERUM 5.0 g/dL (6.0-8.3); UREA NITROGEN, BLOOD 19.0 mg/dL (7-18)
--- NOTE | 2025-02-20 10:02 | PN ---
[facility] PROGRESS NOTE Date Patient Seen: Feb 20, 2025 Time of Visit: 10:02 Supervising Physician: Dr. Rendon Primary Care Physician: Dr. Ruperto Jarvis Outpatient Specialists: [ ] Inpatient Consults: [ ] PROBLEM LIST: Sepsis on arrival Toxic metabolic encephalopathy Aspiration pneumonia Acute complicated cystitis DALLIN, unknown if acute on chronic History of dementia CAD Hypertension INTERVAL HISTORY: Patient is seen at bedside today, encephalopathy has improved. He currently is on room air. Continues on azithromycin and Rocephin as well as Solu-Medrol 40 b.i.d.. Patient is NPO, pending MBS tomorrow for suspected aspiration. He remains on aspiration precautions as well. Discussion with family regarding possible SNF placement, who was with the family get back to me tomorrow. Patient does have a 247 provider and would be a safe discharge home if family moves that direction. DALLIN is improving today with a creatinine of 1.1. White count is 10.4 hemoglobin stable at 9.6. We will continue to follow closely. Plan: We will continue with the antibiotics, following cultures Supplemental O2 Pending family decision on SNF placement Patient to remain NPO Patient's DALLIN is improving, we will follow I&Os Continue with telemetry Patient downgraded to med surge REVIEW OF SYSTEMS: 12 point ROS reviewed with patient. Pertinent positives mentioned above. Otherwise negative. PHYSICAL EXAM: GENERAL: alert, weak, awake oriented x 3 HEENT: EOMI, Sclera non icteric, moist mucosa NECK: Supple, no JVD, trachea midline LUNGS: Clear breath sounds bilaterally. No wheezes HEART: Regular rate and rhythm. Normal S1 and S2, without murmurs ABD: Abdomen soft, nontender. Bowel sounds present EXT: No clubbing cyanosis or edema NEURO: Alert and oriented to person, follows commands Vital Signs (last 8hr) Date Time Temp Pulse Resp B/P (MAP) Pulse Ox O2 Delivery O2 Flow Rate FiO2 02/20/25 08:28 100 Room Air* 0 21 02/20/25 08:00 98.2 71 16 159/85 100 Room Air 21 02/20/25 06:55 65 20 N/Cannula Low lpm 2.0 28 02/20/25 06:55 67 20 02/20/25 04:00 98.6 70 20 164/76 96 Nasal Cannula 2.0 24 LABS: Hematology Labs: Test 02/20/25 06:00 Range/Units White Blood Count 10.4 4.8-10.8 K/uL Red Blood Count 3.28 L 4.50-6.20 MIL/uL Hemoglobin 9.6 L 14.0-18.0 g/dL Hematocrit 28.9 L 42-54 % Mean Corpuscular Volume 88.1 79-99 fL Mean Corpuscular Hemoglobin 29.3 27.0-33.0 pg Mean Corpuscular Hemoglobin Concent 33.2 32.0-36.0 g/dL Red Cell Distribution Width 14.6 11.0-15.5 % Platelet Count 205 130-400 K/uL Mean Platelet Volume 10.6 H 7.5-10.5 fL Immature Granulocyte % (Auto) 3.2 H 0-1 % Neutrophils (%) (Auto) 85.3 H 40.0-77.0 % Lymphocytes (%) (Auto) 5.6 L 21.0-51.0 % Monocytes (%) (Auto) 5.7 3.0-13.0 % Eosinophils (%) (Auto) 0.0 0.0-8.0 % Basophils (%) (Auto) 0.2 0.0-5.0 % Neutrophils # (Auto) 8.8 H 1.8-7.7 K/uL Lymphocytes # (Auto) 0.6 L 1.0-4.8 K/uL Monocytes # (Auto) 0.6 0.1-1.0 K/uL Eosinophils # (Auto) 0.00 0.00-0.70 K/uL Basophils # (Auto) 0.02 0.00-0.20 K/uL Absolute Immature Granulocyte (auto 0.33 0-1 K/uL Nucleated Red Blood Cells 0.3 H 0.0-0.19 % Chemistry Labs: Test 02/20/25 06:00 Range/Units Sodium Level 142 136-145 mmol/L Potassium Level 4.2 3.5-5.1 mmol/L Chloride Level 107 101-111 mmol/L Carbon Dioxide Level 28 21-32 mmol/L Blood Urea Nitrogen 19 H 7-18 mg/dL Creatinine 1.1 0.5-1.3 mg/dL Glomerular Filtration Rate Calc 65 >90 mL/min Random Glucose 99 70-105 mg/dL Total Calcium 8.3 L 8.5-10.1 mg/dL Total Bilirubin 0.4 # 0.2-1.0 mg/dL Aspartate Amino Transf (AST/SGOT) 21 10-37 U/L Alanine Aminotransferase (ALT/SGPT) 16 # 12-78 U/L Alkaline Phosphatase 83 50-136 U/L Total Protein 5.0 L 6.0-8.3 g/dL Albumin 2.3 L 3.5-5.0 g/dL DIAGNOSTICS / RADIOLOGY RESULTS: [ ] PLAN NEURO: Minimize central acting medications as possible. Maintain fall precautions, adequate lighting during the day PULMONARY: Supplemental 02 as needed. Maintain aspiration precautions at all times CARDIOVASCULAR: Follow hemodynamics. Vital signs per facility protocol GI & NUTRITION: Continue with nutritional support. Continue stool softeners and laxatives as needed. KIDNEYS & ELECTROLYTES: Strict monitoring of intake, output and overall fluid balance. Avoid nephrotoxic medications to the extent possible. Medications to be dosed according to renal function. Monitor electrolytes and replace as needed ENDOCRINE: Maintain blood glucose between 100-180 at all times. Hypoglycemia protocol in place INFECTIOUS DISEASE: Trend temperature, WBC and procalcitonin level Follow cultures, deescalate antibiotics as soon as possible. Panculture if new onset fever ONCOLOGY/HEMATOLOGY/COAGULATION: Monitor for s/s of bleeding Monitor hemoglobin, coagulation studies as needed SKIN: Pressure ulcer prevention per facility protocol Specialty mattress ORTHO/REHAB: Continue PT/OT Prophylaxis: Continue GI and DVT prophylaxis Code Status: Full Resuscitation Disposition: CARTER BRITTON Feb 20, 2025 10:02
[2025-02-21] VITALS (14 sets, daily range): BP systolic 132–157; BP diastolic 68–83; PULSE 64–80; RESP 16–20; TEMP 97.3–98.9; O2SAT 95–100
[2025-02-21 04:13] LABS: IMMATURE GRANULOCYTE ABSOLUTE 0.40 K/uL (0-1); NUCLEATED RED BLOOD CELLS 0.6 % (0.0-0.19); PLATELET COUNT (AUTO) 186 K/uL (130-400); RED BLOOD CELL COUNT(AUTO) 3.58 MIL/uL (4.50-6.20); RED CELL DISTRIBUTION WIDTH 14.4 % (11.0-15.5); WHITE BLOOD COUNT (AUTO) 9.0 K/uL (4.8-10.8)
[2025-02-21 04:33] LABS: ASPARTATE AMINOTRANSFERASE 21.0 U/L (10-37); CREATININE 1.1 mg/dL (0.5-1.3); GLOMERULAR FILTR. RATE CALC 65.0 mL/min (>90); GLUCOSE,RANDOM 112.0 mg/dL (70-105); SODIUM SERUM 138.0 mmol/L (136-145); TOTAL PROTEIN, SERUM 4.9 g/dL (6.0-8.3); UREA NITROGEN, BLOOD 17.0 mg/dL (7-18)
--- NOTE | 2025-02-21 10:05 | PN ---
[facility] PROGRESS NOTE Date Patient Seen: Feb 21, 2025 Time of Visit: 10:04 Supervising Physician: Dr. Rendon Primary Care Physician: Dr. Ruperto Jarvis Outpatient Specialists: [ ] Inpatient Consults: [ ] PROBLEM LIST: Sepsis on arrival Toxic metabolic encephalopathy Aspiration pneumonia Acute complicated cystitis DALLIN, unknown if acute on chronic History of dementia CAD Hypertension INTERVAL HISTORY: Patient seen at bedside today with provider present. He is currently on 2-liter nasal cannula with a white count of 9.0 and continues on azithromycin and rocephin as well as solumedrol-40BID. Patient went for MBSS today. At this time, he has failed with aspiration of pudding thick liquids and a delayed cough response. Recommendations for a 72-hour hold on NPO and reassessment later this week. At this time, patient is on D5LR for glucose support. We will continue to monitor the patient's progress and speak with family tomorrow regarding his disposition. Plan: Pending reassessment with MBS and 72 hours Patient has [id number] provider services We will continue with the antibiotics, following cultures Supplemental O2 Patient to remain NPO Patient's DALLIN is improving, we will follow I&Os REVIEW OF SYSTEMS: 12 point ROS reviewed with patient. Pertinent positives mentioned above. Otherwise negative. PHYSICAL EXAM: GENERAL: alert, weak, awake oriented x 3 HEENT: EOMI, Sclera non icteric, moist mucosa NECK: Supple, no JVD, trachea midline LUNGS: Clear breath sounds bilaterally. No wheezes HEART: Regular rate and rhythm. Normal S1 and S2, without murmurs ABD: Abdomen soft, nontender. Bowel sounds present EXT: No clubbing cyanosis or edema NEURO: Alert and oriented to person, follows commands Vital Signs (last 8hr) Date Time Temp Pulse Resp B/P (MAP) Pulse Ox O2 Delivery O2 Flow Rate FiO2 02/21/25 07:58 97.3 72 17 150/80 100 Nasal Cannula 2.0 02/21/25 06:27 64 16 N/Cannula Low lpm 2.0 28 02/21/25 06:25 64 18 02/21/25 03:33 98.1 66 20 132/76 96 Nasal Cannula 2.0 LABS: Hematology Labs: Test 02/21/25 03:59 Range/Units White Blood Count 9.0 4.8-10.8 K/uL Red Blood Count 3.58 L 4.50-6.20 MIL/uL Hemoglobin 10.2 L 14.0-18.0 g/dL Hematocrit 32.3 L 42-54 % Mean Corpuscular Volume 90.2 79-99 fL Mean Corpuscular Hemoglobin 28.5 27.0-33.0 pg Mean Corpuscular Hemoglobin Concent 31.6 L 32.0-36.0 g/dL Red Cell Distribution Width 14.4 11.0-15.5 % Platelet Count 186 130-400 K/uL Mean Platelet Volume 10.0 7.5-10.5 fL Immature Granulocyte % (Auto) 4.5 H 0-1 % Neutrophils (%) (Auto) 85.8 H 40.0-77.0 % Lymphocytes (%) (Auto) 4.9 L 21.0-51.0 % Monocytes (%) (Auto) 4.5 3.0-13.0 % Eosinophils (%) (Auto) 0.0 0.0-8.0 % Basophils (%) (Auto) 0.3 0.0-5.0 % Neutrophils # (Auto) 7.7 1.8-7.7 K/uL Lymphocytes # (Auto) 0.4 L 1.0-4.8 K/uL Monocytes # (Auto) 0.4 0.1-1.0 K/uL Eosinophils # (Auto) 0.00 0.00-0.70 K/uL Basophils # (Auto) 0.03 0.00-0.20 K/uL Absolute Immature Granulocyte (auto 0.40 0-1 K/uL Nucleated Red Blood Cells 0.6 H 0.0-0.19 % Chemistry Labs: Test 02/21/25 03:59 Range/Units Sodium Level 138 136-145 mmol/L Potassium Level 4.3 3.5-5.1 mmol/L Chloride Level 103 101-111 mmol/L Carbon Dioxide Level 26 21-32 mmol/L Blood Urea Nitrogen 17 7-18 mg/dL Creatinine 1.1 0.5-1.3 mg/dL Glomerular Filtration Rate Calc 65 >90 mL/min Random Glucose 112 H 70-105 mg/dL Total Calcium 8.1 L 8.5-10.1 mg/dL Total Bilirubin 0.5 # 0.2-1.0 mg/dL Aspartate Amino Transf (AST/SGOT) 21 10-37 U/L Alanine Aminotransferase (ALT/SGPT) 13 12-78 U/L Alkaline Phosphatase 82 50-136 U/L Total Protein 4.9 L 6.0-8.3 g/dL Albumin 2.1 L 3.5-5.0 g/dL DIAGNOSTICS / RADIOLOGY RESULTS: [ ] PLAN NEURO: Minimize central acting medications as possible. Maintain fall precautions, adequate lighting during the day PULMONARY: Supplemental 02 as needed. Maintain aspiration precautions at all times CARDIOVASCULAR: Follow hemodynamics. Vital signs per facility protocol GI & NUTRITION: Continue with nutritional support. Continue stool softeners and laxatives as needed. KIDNEYS & ELECTROLYTES: Strict monitoring of intake, output and overall fluid balance. Avoid nephrotoxic medications to the extent possible. Medications to be dosed according to renal function. Monitor electrolytes and replace as needed ENDOCRINE: Maintain blood glucose between 100-180 at all times. Hypoglycemia protocol in place INFECTIOUS DISEASE: Trend temperature, WBC and procalcitonin level Follow cultures, deescalate antibiotics as soon as possible. Panculture if new onset fever ONCOLOGY/HEMATOLOGY/COAGULATION: Monitor for s/s of bleeding Monitor hemoglobin, coagulation studies as needed SKIN: Pressure ulcer prevention per facility protocol Specialty mattress ORTHO/REHAB: Continue PT/OT Prophylaxis: Continue GI and DVT prophylaxis Code Status: Full Resuscitation Disposition: CARTER BRITTON Feb 21, 2025 10:05
--- NOTE | 2025-02-21 13:40 | NUR ---
MBSS COMPLETED. Aspiration after the swallow with pudding and pureed textures with delayed cough response with pudding only. Deep non-transient penetrations with thin liquids via tsp and cup sip with no cough response. RECOMMENDATIONS: NPO, halfway alternate means of nutrition/hydration and repeat MBSS within a few days. DIAGNOSTIC FINDINGS: Pt presented with moderate oral and moderate to severe pharyngeal dysphagia characterized by decreased oral motor strength, ROM, and coordination; decreased tongue base retraction; decreased pressure generation within the pharynx; decreased sensation; delayed pharyngeal response trigger and decreased hyo-laryngeal elevation/excursion. These characteristics were evidenced by slow oral intake; occasional bolus holding; tongue pumping; premature spillage to valleculae with spillover to pyriform sinuses; residue on body and base of tongue, valleculae, pyriform sinuses and posterior pharyngeal wall unable to follow commands to repeat swallows to clear residue which led to laryngeal penetration and aspirations; aspiration after the swallow with pudding and pureed textures with delayed cough response with pudding only; deep non-transient penetrations with thin liquids via tsp and cup sip with no cough response. HOTBED LEVER OPERATOR reviewed results and recommendations with patient and nurse Evette. HOTBED LEVER OPERATOR educated patient on risks and consequences of aspiration. Speech therapy will follow up to repeat MBSS within a few days. Speech therapy recommended however patient not following commands to participate at this time. All questions answered. Addendum: 02/22/[address] [facility] FERNANDEZ Amended: Links added.
--- NOTE | 2025-02-21 13:45 | NUR ---
Patient off the floor for MBSS. PT to follow.
--- NOTE | 2025-02-21 14:40 | NUR ---
[facility] Consult: Patient assessed by wound healing team. See wound assessment. Assessment and recommendations provided to primary nurse. Education provided.
[2025-02-21] MEDS: DEXTROSE 5%-LACTATED RINGERS 1,000 ML IV SCH (17:00)
[2025-02-21] MEDS: BALSAM PERU/CASTOR OIL 60 GM TUBE TP SCH (21:27)
[2025-02-22] VITALS (14 sets, daily range): BP systolic 132–160; BP diastolic 68–85; PULSE 71–91; RESP 16–24; TEMP 97.6–98.6; O2SAT 95–98
[2025-02-22 04:17] LABS: IMMATURE GRANULOCYTE ABSOLUTE 0.49 K/uL (0-1); NUCLEATED RED BLOOD CELLS 0.6 % (0.0-0.19); PLATELET COUNT (AUTO) 193 K/uL (130-400); RED BLOOD CELL COUNT(AUTO) 3.81 MIL/uL (4.50-6.20); RED CELL DISTRIBUTION WIDTH 14.5 % (11.0-15.5); WHITE BLOOD COUNT (AUTO) 9.7 K/uL (4.8-10.8)
[2025-02-22 04:44] LABS: ASPARTATE AMINOTRANSFERASE 21.0 U/L (10-37); CREATININE 1.0 mg/dL (0.5-1.3); GLOMERULAR FILTR. RATE CALC 73.0 mL/min (>90); GLUCOSE,RANDOM 108.0 mg/dL (70-105); SODIUM SERUM 138.0 mmol/L (136-145); TOTAL PROTEIN, SERUM 5.0 g/dL (6.0-8.3); UREA NITROGEN, BLOOD 17.0 mg/dL (7-18)
--- NOTE | 2025-02-22 14:21 | PN ---
[facility] PROGRESS NOTE Date Patient Seen: Feb 22, 2025 Time of Visit: 14:21 Supervising Physician: Dr. Santiago Rendon Primary Care Physician: Dr. Ruperto Jarvis Outpatient Specialists: [ ] Inpatient Consults: NA PROBLEM LIST: Sepsis present on admission Acute toxic metabolic encephalopathy Aspiration pneumonia Acute complicated cystitis DALLIN, unknown if acute on chronic Advanced dementia CAD Hypertension Octogenarian INTERVAL HISTORY: Patent assessed at bedside. Awake, but unable to follow commands or voice needs. Failed MBSS yesterday. Spoke to daughter in length about goals of care, daughter showed me advance directives which indicate DNR and no artificial life support so no PEG tube. States she wants to respect her fathers wishes. Opted for hosp[facility] and DNR status per patient request. No overnight issues per nursing. Nurse JAVI Olvera present throughout conversation/evaluation of patient. Plan: CM for hospice per daughter request DNR status per daughter POA Soft diet, thickened fluids, pleasure feedings Taper steroids Continue on IV Rocephin, Azithromycin, start on Flagyl Supplemental O2 Patient's DALLIN is improving, we will follow I&Os REVIEW OF SYSTEMS: 12 point ROS reviewed with patient. Pertinent positives mentioned above. Otherwise negative. PHYSICAL EXAM: GENERAL: alert, weak, awake oriented x 1 HEENT: EOMI, Sclera non icteric, moist mucosa NECK: Supple, no JVD, trachea midline LUNGS: Clear breath sounds bilaterally. No wheezes HEART: Regular rate and rhythm. Normal S1 and S2, without murmurs ABD: Abdomen soft, nontender. Bowel sounds present EXT: No clubbing cyanosis or edema NEURO: Alert and oriented to person, follows commands Vital Signs (last 8hr) Date Time Temp Pulse Resp B/P (MAP) Pulse Ox O2 Delivery O2 Flow Rate FiO2 02/22/25 11:40 98.1 79 17 157/85 97 Room Air 02/22/25 11:19 74 18 N/A Room Air 02/22/25 11:17 74 18 02/22/25 08:00 98.2 85 17 147/80 97 Room Air 02/22/25 06:52 76 18 N/A Room Air 02/22/25 06:50 76 18 LABS: Hematology Labs: Test 02/22/25 04:05 Range/Units White Blood Count 9.7 4.8-10.8 K/uL Red Blood Count 3.81 L 4.50-6.20 MIL/uL Hemoglobin 11.1 L 14.0-18.0 g/dL Hematocrit 34.3 L 42-54 % Mean Corpuscular Volume 90.0 79-99 fL Mean Corpuscular Hemoglobin 29.1 27.0-33.0 pg Mean Corpuscular Hemoglobin Concent 32.4 32.0-36.0 g/dL Red Cell Distribution Width 14.5 11.0-15.5 % Platelet Count 193 130-400 K/uL Mean Platelet Volume 10.3 7.5-10.5 fL Immature Granulocyte % (Auto) 5.1 H 0-1 % Neutrophils (%) (Auto) 85.7 H 40.0-77.0 % Lymphocytes (%) (Auto) 4.9 L 21.0-51.0 % Monocytes (%) (Auto) 3.6 3.0-13.0 % Eosinophils (%) (Auto) 0.0 0.0-8.0 % Basophils (%) (Auto) 0.7 0.0-5.0 % Neutrophils # (Auto) 8.3 H 1.8-7.7 K/uL Lymphocytes # (Auto) 0.5 L 1.0-4.8 K/uL Monocytes # (Auto) 0.4 0.1-1.0 K/uL Eosinophils # (Auto) 0.00 0.00-0.70 K/uL Basophils # (Auto) 0.07 0.00-0.20 K/uL Absolute Immature Granulocyte (auto 0.49 0-1 K/uL Nucleated Red Blood Cells 0.6 H 0.0-0.19 % Chemistry Labs: Test 02/22/25 12:29 02/22/25 04:05 Range/Units Whole Blood Glucose 102 70-110 MG/DL Sodium Level 138 136-145 mmol/L Potassium Level 4.0 3.5-5.1 mmol/L Chloride Level 103 101-111 mmol/L Carbon Dioxide Level 26 21-32 mmol/L Blood Urea Nitrogen 17 7-18 mg/dL Creatinine 1.0 0.5-1.3 mg/dL Glomerular Filtration Rate Calc 73 >90 mL/min Random Glucose 108 H 70-105 mg/dL Total Calcium 8.2 L 8.5-10.1 mg/dL Total Bilirubin 0.5 0.2-1.0 mg/dL Aspartate Amino Transf (AST/SGOT) 21 10-37 U/L Alanine Aminotransferase (ALT/SGPT) 14 12-78 U/L Alkaline Phosphatase 85 50-136 U/L B-Type Natriuretic Peptide 690 H 0-100 pg/mL Total Protein 5.0 L 6.0-8.3 g/dL Albumin 2.3 L 3.5-5.0 g/dL DIAGNOSTICS / RADIOLOGY RESULTS: [ ] PLAN NEURO: Minimize central acting medications as possible. Maintain fall precautions, adequate lighting during the day PULMONARY: Supplemental 02 as needed. Maintain aspiration precautions at all times CARDIOVASCULAR: Follow hemodynamics. Vital signs per facility protocol GI & NUTRITION: Continue with nutritional support. Continue stool softeners and laxatives as needed. KIDNEYS & ELECTROLYTES: Strict monitoring of intake, output and overall fluid balance. Avoid nephrotoxic medications to the extent possible. Medications to be dosed according to renal function. Monitor electrolytes and replace as needed ENDOCRINE: Maintain blood glucose between 100-180 at all times. Hypoglycemia protocol in place INFECTIOUS DISEASE: Trend temperature, WBC and procalcitonin level Follow cultures, deescalate antibiotics as soon as possible. Panculture if new onset fever ONCOLOGY/HEMATOLOGY/COAGULATION: Monitor for s/s of bleeding Monitor hemoglobin, coagulation studies as needed SKIN: Pressure ulcer prevention per facility protocol Specialty mattress ORTHO/REHAB: Continue PT/OT Prophylaxis: Continue GI and DVT prophylaxis Code Status: Full Resuscitation Disposition: for hospice DAVIDADOMINICCesar Sofia [facility] Feb 22, 2025 14:21
--- NOTE | 2025-02-22 16:00 | NUR ---
DCP: [facility] [phone] with [facility] [phone] Satnam met with daughter Christy, she wants pt to return to [facility] with [facility] . Pt's is also on services with [facility] [place]. Daughter signed consent. requesting dc tomorrow am Satnam spoke to Coral [phone] at [facility] and made referral and faxed clinicals to office. DCP delivery of DME to [facility]
--- NOTE | 2025-02-22 17:25 | CONS ---
CONSULTATION NOTE Date of Service: Feb 22, 2025 Reason for Consultation: [Buttock ulcers ] Requesting Physician: [ Dr. Turner ] HISTORY OF PRESENT ILLNESS: Patient evaluated at bedside in room 421 for wound care evaluation. The patien t is an 85 year old male with a past medical history of severe dementia, hypertension, CAD who present from a retirement for hypotension. Code sepsis was inititiated. Patient was found to have acute complicated cystitis concern for possible aspiration pneumonia. The patient was admitted for further medical management. REVIEW OF SYSTEMS CONSTITUTIONAL: Denies fever, chills, or fatigue. HEAD/FACE: No signs of trauma. EENT: Denies eye pain, blurred vision, double vision, or light sensitivity. RESPIRATORY: Denies shortness of breath, cough, wheezing CARDIOVASCULAR: Denies chest pain, palpitation, syncope GASTROINTESTINAL/ABDOMINAL: Denies abdominal pain, constipation, diarrhea, nausea or vomiting GENITOURINARY: Denies dysuria or hematuria. MUSCULOSKELETAL: Denies joint pain, tenderness, or trauma. INTEGUMENTARY: Denies rash or itchiness NEUROLOGICAL/PSYCH: Denies anxiety, depression, heat or cold intolerance. PAST MEDICAL HX: DEMENTIA HYPERTENSION CAD PAST SURGICAL HX: noncontributory SOCIAL HISTORY: No tobacco, ETOH, or illicit drug use Coded Allergies: No Known Drug Allergies (Unverified Allergy, Unknown, 09/25/23) PHYSICAL EXAM EYES: Anicteric. Pupils equal and reactive. HENT: No oral thrush seen, moist Oral mucosa NECK: Supple, no JVD or thyromegaly. LUNGS: Good air entry. No rales, no rhonchi. CARDIOVASCULAR: S1, S2 regular. No murmur heard. ABDOMEN: Soft, non tender, bowel sounds present, no organomegaly CENTRAL NERVOUS SYSTEM: Awake, alert, oriented x 1. No focal deficits. SKIN: Stage 2 pressure ulcer noted to left buttock noted with 100% granulation with mild periwound erythema, no drainage noted. LYMPHATICS: No peripheral lymphadenopathy MUSCULOSKELETAL: No joint swelling, erythema or tenderness. EXTREMITIES: No cyanosis or clubbing BACK: No deformity GENITOURINARY: No dysuria or hematuria Vital Sign (Last 24 Hours) 02/22/25 02/22/25 02/22/25 08:25 11:19 16:39 Temp 98.1 Pulse 91 Resp 17 B/P (MAP) 160/72 Pulse Ox 95 O2 Delivery Room Air O2 Flow Rate 2 FiO2 21 Intake & Output (last 24hrs) 02/21/25 02/21/25 02/22/25 15:00 23:00 07:00 Intake Total 0 ml 0 ml Output Total 0 ml 250 ml Balance 0 ml -250 ml LABS: Laboratory: Test 02/22/25 12:29 02/22/25 04:05 Range/Units Whole Blood Glucose 102 70-110 MG/DL White Blood Count 9.7 4.8-10.8 K/uL Red Blood Count 3.81 L 4.50-6.20 MIL/uL Hemoglobin 11.1 L 14.0-18.0 g/dL Hematocrit 34.3 L 42-54 % Mean Corpuscular Volume 90.0 79-99 fL Mean Corpuscular Hemoglobin 29.1 27.0-33.0 pg Mean Corpuscular Hemoglobin Concent 32.4 32.0-36.0 g/dL Red Cell Distribution Width 14.5 11.0-15.5 % Platelet Count 193 130-400 K/uL Mean Platelet Volume 10.3 7.5-10.5 fL Immature Granulocyte % (Auto) 5.1 H 0-1 % Neutrophils (%) (Auto) 85.7 H 40.0-77.0 % Lymphocytes (%) (Auto) 4.9 L 21.0-51.0 % Monocytes (%) (Auto) 3.6 3.0-13.0 % Eosinophils (%) (Auto) 0.0 0.0-8.0 % Basophils (%) (Auto) 0.7 0.0-5.0 % Neutrophils # (Auto) 8.3 H 1.8-7.7 K/uL Lymphocytes # (Auto) 0.5 L 1.0-4.8 K/uL Monocytes # (Auto) 0.4 0.1-1.0 K/uL Eosinophils # (Auto) 0.00 0.00-0.70 K/uL Basophils # (Auto) 0.07 0.00-0.20 K/uL Absolute Immature Granulocyte (auto 0.49 0-1 K/uL Nucleated Red Blood Cells 0.6 H 0.0-0.19 % Sodium Level 138 136-145 mmol/L Potassium Level 4.0 3.5-5.1 mmol/L Chloride Level 103 101-111 mmol/L Carbon Dioxide Level 26 21-32 mmol/L Blood Urea Nitrogen 17 7-18 mg/dL Creatinine 1.0 0.5-1.3 mg/dL Glomerular Filtration Rate Calc 73 >90 mL/min Random Glucose 108 H 70-105 mg/dL Total Calcium 8.2 L 8.5-10.1 mg/dL Total Bilirubin 0.5 0.2-1.0 mg/dL Aspartate Amino Transf (AST/SGOT) 21 10-37 U/L Alanine Aminotransferase (ALT/SGPT) 14 12-78 U/L Alkaline Phosphatase 85 50-136 U/L B-Type Natriuretic Peptide 690 H 0-100 pg/mL Total Protein 5.0 L 6.0-8.3 g/dL Albumin 2.3 L 3.5-5.0 g/dL DIAGNOSTICS / RADIOLOGY: [ ] PROBLEM LIST : Medical Problems: Pressure ulcer of left buttock, stage 2 PLAN: Wound care to left buttock ulcer- Apply Venelex BID and PRN Waffle mattress Keep wounds clean and dry Offloading/reposition q 2 hours Continue IV antibiotics per ID Comorbidities per primary care team Further Management per hospital course. Thank You for the consult and allowing us to participate in the care of this patient. ATTESTATION BY PHYSICIAN I have seen and examined the patient. I reviewed the documentation, medical decision making, and treatment plan as noted by the mid-level provider above. I agree with the findings and plan of care. AMBIKA HIGUERA MD, [facility]HEL[facility] RN Feb 22, 2025 17:25 AMBIKA HIGUERA MD Feb 25, 2025 13:29
[2025-02-23] VITALS (7 sets, daily range): BP systolic 140–165; BP diastolic 76–98; PULSE 72–85; RESP 14–18; TEMP 97.6–98.1; O2SAT 97–98
[2025-02-23 04:08] LABS: IMMATURE GRANULOCYTE ABSOLUTE 0.57 K/uL (0-1); NUCLEATED RED BLOOD CELLS 0.4 % (0.0-0.19); PLATELET COUNT (AUTO) 187 K/uL (130-400); RED BLOOD CELL COUNT(AUTO) 3.86 MIL/uL (4.50-6.20); RED CELL DISTRIBUTION WIDTH 14.5 % (11.0-15.5); WHITE BLOOD COUNT (AUTO) 10.5 K/uL (4.8-10.8)
[2025-02-23 04:23] LABS: ASPARTATE AMINOTRANSFERASE 27.0 U/L (10-37); CREATININE 1.0 mg/dL (0.5-1.3); GLOMERULAR FILTR. RATE CALC 73.0 mL/min (>90); GLUCOSE,RANDOM 116.0 mg/dL (70-105); SODIUM SERUM 138.0 mmol/L (136-145); TOTAL PROTEIN, SERUM 4.9 g/dL (6.0-8.3); UREA NITROGEN, BLOOD 21.0 mg/dL (7-18)
--- NOTE | 2025-02-23 10:50 | NUR ---
DISCHARGE REPORT CALLED IN TO [facility] BY JAVI FENTON. SPOKE WITH MELANIE SLADE AND PROVIDED PATIENT'S CONDITION/STATUS AND MD'S ORDERS. ALL QUESTIONS ANSWERED. VOICED UNDERSTANDING. PENDING EMS TRANSPORT.
--- NOTE | 2025-02-23 11:03 | NUR ---
DISCHARGE NOTIFIED KALIA CLARK (STEPDAUGHTER) VIA TELEPHONE REGARDING PATIENT'S DISCHARGE . VOICED UNDERSTANDING AND STATED WILL WAIT FOR PATIENT AT ASSISTED. ALL QUESTIONS ANSWERED. PENDING ARRIVAL FROM EMS FOR TRANSPORT.
--- NOTE | 2025-02-23 11:30 | NUR ---
DISCHARGE PATIENT LEFT VIA STRETCHER ACCOMPANIED BY PROVIDER NO S/S OF DISTRESS NOTED.
--- NOTE | 2025-02-23 15:00 | DS ---
[facility] DISCHARGE SUMMARY Date Patient Seen: Feb 23, 2025 Time of Visit: 15:00 Supervising Physician: Dr. Santiago Rendon Primary Care Physician: Dr. Ruperto Jarvis Outpatient Specialists: [ ] Inpatient Consults: NA PROBLEM LIST: Sepsis present on admission Acute toxic metabolic encephalopathy Severe dysphagia, no PEG tube per advance directives Aspiration pneumonia Acute complicated cystitis, urine culture negative DALLIN, unknown if acute on chronic Advanced dementia CAD Hypertension Octogenarian HPI (per admitting provider) PATIENT IS AN 85-YEAR-OLD MALE I AM TOLD THAT HAS EXTENSIVE PAST MEDICAL HISTORY INCLUDES SEVERE DEMENTIA, HYPERTENSION, CAD WHO PRESENTED FROM A [facility] FOR HYPOTENSION. CODE SEPSIS WAS INITIATED, PATIENT RECEIVED FLUIDS AND WAS STARTED ON ANTIBIOTICS. PATIENT WAS FOUND TO HAVE AN ACUTE COMPLICATED CYSTITIS. CONCERN FOR POSSIBLE ASPIRATION PNEUMONIA. PATIENT ADMITTED TO THE FLOOR, ON SUPPLEMENTAL O2, NEBULIZER TREATMENTS AND STEROIDS. WE ARE PENDING ADDITIONAL DETAILS AND REVIEW OF HIS HOME MEDICATIONS AND ADDITIONAL HISTORY. HOSPITAL COURSE: Patient was admitted due to sepsis secondary to cystitis and aspiration pneumonia. Patient failed MBSS on 02/21/2025 and daughter who is POA stated no PEG per patients advance directives. Daughter opted for hospice at [facility]. Today, patient is awake, confused, baseline, currently on room air. RX for Levaquin sent to pharmacy. Stable to be discharged to [facility] on hospice. New Medications: Levofloxacin (Levaquin 750Mg Tabs) 750 Mg Tablet 750 MG PO DAILY for 5 Days, #5 TAB Continued Medications: Donepezil HCl (Donepezil HCl) 5 Mg Tablet 1 TAB PO HS for 30 Days, #30 TAB 0 Refills Lisinopril (Lisinopril) 10 Mg Tablet 1 TAB PO DAILY for 30 Days, #30 TAB 0 Refills Lovastatin (Lovastatin) 40 Mg Tablet 1 TAB PO HS for 30 Days, #30 TAB 0 Refills with food Megestrol Acetate (Megestrol Acetate Susp) 400 Mg/10 Ml (40 Mg/Ml) Susp 40 ML PO [id number] PRN for PROTOCOL for 30 Days, #300 ML 0 Refills Memantine HCl (Memantine HCl) 10 Mg Tablet 1 TAB PO BID for 30 Days, #60 TAB 0 Refills Quetiapine Fumarate (Seroquel) 50 Mg Tablet 1 TAB PO HS for 30 Days, #30 TAB 0 Refills PHYSICAL EXAM: GENERAL: alert, weak, awake oriented x 1 HEENT: EOMI, Sclera non icteric, moist mucosa NECK: Supple, no JVD, trachea midline LUNGS: Clear breath sounds bilaterally. No wheezes HEART: Regular rate and rhythm. Normal S1 and S2, without murmurs ABD: Abdomen soft, nontender. Bowel sounds present EXT: No clubbing cyanosis or edema NEURO: Alert and oriented to person, follows commands FOLLOW-UP: Follow-up with PCP in 2-3 days RECOMMENDATIONS: See Discharge Instructions This case was seen and discussed with my supervising physician. More than 30 minutes spent on discharge process, including evaluation of the patient, discussion with nursing staff, medication reconciliation and follow-up appointments ROGER HIGUERA Feb 23, 2025 15:00
== END 2025-02-23 11:20 | disposition hospice, home (50) | DRG 871 ==
LOC: EDH 22:16 → EDHIP 02-17 02:02 → 2DH 02-17 06:40 → 4DH 02-18 11:05
PROVIDERS: ADMIT Internal Medicine Critical Care Medicine; ATTEND Internal Medicine Critical Care Medicine
DX: A41.9 Sepsis, unspecified organism (principal); G92.8 Other toxic encephalopathy; J69.0 Pneumonitis due to inhalation of food and vomit; L89.322 Pressure ulcer of left buttock, stage 2; Z66 Do not resuscitate; R13.10 Dysphagia, unspecified; N17.9 Acute kidney failure, unspecified; N30.00 Acute cystitis without hematuria; F03.C0 Unspecified dementia, severe, without behavioral disturbance, psychotic disturbance, mood disturbance, and anxiety; I12.9 Hypertensive chronic kidney disease with stage 1 through stage 4 chronic kidney disease, or unspecified chronic kidney disease; N18.9 Chronic kidney disease, unspecified; I25.10 Atherosclerotic heart disease of native coronary artery without angina pectoris; E78.00 Pure hypercholesterolemia, unspecified; Z79.899 Other long term (current) drug therapy
CPT/HCPCS: 36415; 36600; 71045; 71270; 74230; 80048; 80053; 80076; 81001; 82435; 82803; 82947; 82948; 83605; 83880; 84132; 84145; 84295; 84484; 85018; 85025; 85610; 85730; 87040; 87086; 87420; 87426; 87804; 92610; 92611; 93005; 94640; 94664; 96365; 99285; G0378; J0456; J0696; J1644; J2250; J2704; J2919; J3010; J3490; Q9967; J1308